=== PATIENT | male | born 1960 | race Caucasian/White ===

== ENCOUNTER 2024-02-06 11:55 | Emergency (ER) | payer MEDICAID, OTHER ==
[2024-02-06] MEDS: Sodium Chloride 0.9% 1,000 ML IV ONE (12:45)
[2024-02-06 12:48] LABS: BASOPHILS ABSOLUTE AUTO 0.05 K/uL (0.00-0.10); BASOPHILS PERCENT AUTO 0.4 % (0.1-1.3); EOSINOPHILS ABSOLUTE AUTO 0.11 K/uL (0.00-0.40); HEMATOCRIT 38.4 % (38.4-49.7); HEMOGLOBIN 14.1 g/dL (12.9-16.9); IMMATURE GRAN ABSOLUTE AUTO 0.05 K/uL (0.00-0.23); IMMATURE GRAN PERCENT AUTO 0.4 % (0.0-0.7); LYMPHOCYTES ABSOLUTE AUTO 1.35 K/uL (0.8-3.3); LYMPHOCYTES PERCENT AUTO 11.7 % (11.4-47.7); MEAN CORPUSCULAR HEMOGLOBIN 31.1 pg (31.6-35.5); MEAN CORPUSCULAR HGB CONC 36.7 g/dL (31.6-35.5); MEAN CORPUSCULAR VOLUME 84.8 fL (81.4-99.0); MONOCYTES ABSOLUTE AUTO 0.53 K/uL (0.20-0.90); MONOCYTES PERCENT AUTO 4.6 % (3.3-12.6); NEUTROPHILS ABSOLUTE AUTO 9.44 K/uL (1.0-7.6); NEUTROPHILS PERCENT AUTO 81.9 % (40.0-78.1); PLATELET COUNT,PLT 218 K/uL (130-375); RED BLOOD CELL COUNT 4.53 M/uL (4.14-5.76); WHITE BLOOD CELL COUNT,WBC 11.5 K/uL (3.2-11.0)
[2024-02-06] MEDS: Ondansetron 4 MG/2 ML SDV IVPUSH ONE (12:51)
[2024-02-06 13:10] LABS: A/G RATIO 1.3 (1.2-2.2); ALANINE AMINOTRANSFERASE,ALT 32 U/L (12-78); ALKALINE PHOSPHATASE 83 U/L (46-116); ANION GAP 9.4 mmol/L (5.0-14.0); ASPARTATE AMNIOTRANSFERASE,AST 21 U/L (15-37); BILIRUBIN TOTAL 1.3 mg/dL (0.2-1.0); BLOOD UREA NITROGEN,BUN 20 mg/dL (7-18); CARBON DIOXIDE,CO2 27 mmol/L (21-32); CHLORIDE,CL 105 mmol/L (100-108); EST CRCL DRUG DOSING (CG) 74.38 mL/min; ESTIMATED GFR 85 mL/min (>60); GLUCOSE RANDOM 112 mg/dL (74-106); POTASSIUM,K 4.1 mmol/L (3.6-5.2); SODIUM,NA 141 mmol/L (140-148)
== END 2024-02-06 14:30 | disposition home or self-care (01) ==
LOC: JP.ED 11:55
DX: T58.91XA Toxic effect of carbon monoxide from unspecified source, accidental (unintentional), initial encounter (principal); F17.210 Nicotine dependence, cigarettes, uncomplicated; E78.00 Pure hypercholesterolemia, unspecified; Z79.899 Other long term (current) drug therapy
CPT/HCPCS: 36415; 71046; 80053; 82375; 85025; 96361; 96374; 99283; 99285; J2405; J7030